=== PATIENT | male | born 1985 | race Caucasian/White ===

== ENCOUNTER 2021-04-07 18:38 | Emergency (ER) | payer BC ==
--- NOTE | 2021-04-07 20:15 | EDM.PDOC ---
ED HPI GENERAL MEDICAL PROBLEM - General Chief Complaint: Laceration Stated Complaint: GASH OVER RIGHT EYE / VERY SWOLLEN Time Seen by Provider: 04/07/21 19:40 Source of Information: Reports: Patient History Limitations: Reports: No Limitations - History of Present Illness INITIAL COMMENTS - FREE TEXT/NARRATIVE: ED with c/o cut to [place]. States working on garage door and cable broke and metal piece came swinging and hit him in forehead. - Related Data Allergies Allergy/AdvReac Type Severity Reaction Status Date / Time No Known Allergies Allergy Verified 04/07/21 19:42 Home Meds: Home Meds . [No Known Home Meds] 04/07/21 [History] Past Medical History - Past Health History Medical/Surgical History: Denies Medical/Surgical History HEENT History: Reports: None Cardiovascular History: Reports: None Respiratory History: Reports: None Gastrointestinal History: Reports: None Genitourinary History: Reports: None Musculoskeletal History: Reports: None Neurological History: Reports: None Psychiatric History: Reports: None Endocrine/Metabolic History: Reports: None Hematologic History: Reports: None Immunologic History: Reports: None Oncologic (Cancer) History: Reports: None Dermatologic History: Reports: None - Infectious Disease History Infectious Disease History: Reports: None - Past Surgical History Head Surgeries/Procedures: Reports: None Social & Family History - Family History Family Medical History: No Pertinent Family History - Tobacco Use Tobacco Use Status *Q: Never Tobacco User Second Hand Smoke Exposure: No - Caffeine Use Caffeine Use: Reports: Coffee, Soda - Recreational Drug Use Recreational Drug Use: No ED ROS GENERAL - Review of Systems Review Of Systems: Comprehensive ROS is negative, except as noted in HPI. ED EXAM, SKIN/RASH Exam: See Below Exam Limited By: No Limitations General Appearance: Alert, Mild Distress Eye Exam: Bilateral Eye: EOMI Ears: Normal External Exam Throat/Mouth: Normal Inspection Head: Atraumatic, Normocephalic Neck: Normal Inspection, Supple, Non-Tender Respiratory/Chest: No Respiratory Distress, Lungs Clear, Normal Breath Sounds Peripheral Pulses: 2+: Carotid (L), Carotid (R), Posterior Tibial (R) Rectal (Males) Exam: Normal Exam Neurological: Alert, Oriented, Normal Cognition, Normal Reflexes, Memory Loss Recent Events Psychiatric: Normal Affect ED SKIN PROCEDURES - Laceration/Wound Repair Left Middle Iliac Crest Appearance: Superficial Anesthetic Type: Local Local Anesthesia - Bupivicaine (Marcaine): Other (left upper eyebrow) Closed with: Wound Adhesive, Dermabond Lac/Wound length In cm: 1 Drain Placement: No Tetanus Status Addressed: No Complications: No Course - Vital Signs Last Recorded V/S: Last Vital Signs Temp 97 F 04/07/21 19:38 Pulse 75 04/07/21 19:38 Resp 18 04/07/21 19:38 BP 159/98 H 04/07/21 19:38 Pulse Ox 100 04/07/21 19:38 Departure - Departure Time of Disposition: 20:35 Disposition: Home, Self-Care 01 Condition: Good Clinical Impression: Laceration - Discharge Information *PRESCRIPTION DRUG MONITORING PROGRAM REVIEWED*: No *COPY OF PRESCRIPTION DRUG MONITORING REPORT IN PATIENT LORIN: No Instructions: Sutures, Mika, or Adhesive Wound Closure, [id number] Referrals: PCP,None [Primary Care Provider] - Forms: ED Department Discharge Additional Instructions: cool pack to eyebrow to minimize swelling keep area clean and dry clinic recheck if redness, increased swelling or drainage from wound may alternate tylenol 650mg and ibuprofen 600mg every 4 hours as needed for discomfort Sepsis Event Note (ED) - Evaluation Sepsis Screening Result: No Definite Risk
== END 2021-04-07 20:34 | disposition home or self-care (01) ==
LOC: DL.ED 18:38
DX: S01.122A Laceration with foreign body of left eyelid and periocular area, initial encounter (principal); W26.8XXA Contact with other sharp object(s), not elsewhere classified, initial encounter; Y99.0 Civilian activity done for income or pay
CPT/HCPCS: 12011; 99282-25